=== PATIENT | female | born 2000 | race Two or more races ===

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

== ENCOUNTER 2019-10-30 11:53 | Emergency (ER) | payer MEDICAID, OTHER ==
[~2019-10-30] VITALS: Ht 165.1 cm; Wt 55.0 kg
[2019-10-30 13:54] LABS: BASOPHILS % 0.3 % (0.0-2.0); EOSINOPHILS % 0.2 % (0.0-5.0); HEMOGLOBIN. 14.4 g/dL (12.0-16.0); MEAN CORPUSCULAR HEMOGLOBIN 31.7 pg (28.0-32.0); MEAN PLATELET VOLUME 9.2 fl (7.4-10.4); MONOCYTES % 5.6 % (2.0-8.0); NEUTROPHILS % 81.9 % (40.0-76.0); PLATELET 330 x1000/uL (130-400); RED BLOOD CELL COUNT 4.56 mill/uL (4.2-5.4); RED CELL DISTRIBUTION WIDTH 13.5 % (11.6-14.6)
[2019-10-30 13:56] LABS: CHLORIDE 109 mEq/L (98-107)
[2019-10-30 14:06] LABS: B-HCG QUANTITATIVE < 1 mIU/mL (<3)
[2019-10-30 16:30] VITALS: BP 123/75
== END 2019-10-30 16:37 | disposition home or self-care (01) ==
LOC: ER 12:52
DX: N93.8 Other specified abnormal uterine and vaginal bleeding (principal); R03.0 Elevated blood-pressure reading, without diagnosis of hypertension; Z32.02 Encounter for pregnancy test, result negative
CPT/HCPCS: 36415; 76830; 76856; 80053; 81025; 84702; 85025; 86850; 86900; 99284